=== PATIENT | male | born 1950 | race Caucasian/White ===

== ENCOUNTER 2021-11-21 22:10 | Emergency (ER) | payer OTHER ==
[2021-11-22 00:27] LABS: BASOPHIL 0.3 % (0-2); EOSINOPHIL 2.2 % (0-7); HCT 44.1 % (42.0-52.0); HGB 15.3 g/dl (13.2-18.0); LYMPHOCYTE 9.4 % (15-48); MCH 31.4 pg (25.0-31.0); MCHC 34.7 g/dL (32.0-36.0); MCV 90.6 fL (78.0-100.0); MONOCYTE 6.6 % (0-12); MPV 9.7 fL (6.0-9.5); NEUTROPHIL 80.8 % (41-80); NRBC 0; PLT 207 K/uL (150-400); RBC 4.87 M/uL (4.70-6.00); RDW 13.2 % (11.5-14.0); WBC 11.7 K/uL (4.0-10.5)
[2021-11-22 00:42] LABS: BUN/CREAT RATIO (CALC) 17.9 RATIO; CREATININE 0.84 mg/dL (0.67-1.17); POTASSIUM 3.9 mmol/L (3.5-5.1)
[2021-11-22] MEDS ORDERED: VIBRAMYCIN100 MG PO (07:09)
[2021-11-22] MEDS ORDERED: PERCOCET 5-3251 EACH PO (07:09)
[2021-11-22] MEDS ORDERED: ONDANSETRON ODT4 MG PO (07:40)
== END 2021-11-22 07:38 | disposition home or self-care (01) ==
LOC: FER 22:10
PROVIDERS: Internal Medicine
DX: S01.01XA Laceration without foreign body of scalp, initial encounter (principal); S09.90XA Unspecified injury of head, initial encounter; M79.674 Pain in right toe(s); M54.2 Cervicalgia; I11.0 Hypertensive heart disease with heart failure; I50.9 Heart failure, unspecified; W10.9XXA Fall (on) (from) unspecified stairs and steps, initial encounter; Y93.89 Activity, other specified; Y92.009 Unspecified place in unspecified non-institutional (private) residence as the place of occurrence of the external cause
CPT/HCPCS: 36415; 70450; 72125; 73630; 80048; 85025

== ENCOUNTER 2022-06-16 10:35 | Emergency (ER) | payer OTHER ==
[~2022-06-16 10:35] MED LIST: ONDANSETRON ODT4 MG PO; PERCOCET 5-3251 EACH PO; VIBRAMYCIN100 MG PO
[2022-06-16 11:48] LABS: BASOPHIL 0.4 % (0-2); EOSINOPHIL 3.6 % (0-7); HCT 44.8 % (42.0-52.0); HGB 15.3 g/dl (13.2-18.0); LYMPHOCYTE 18.7 % (15-48); MCH 31.6 pg (25.0-31.0); MCHC 34.2 g/dL (32.0-36.0); MCV 92.6 fL (78.0-100.0); MONOCYTE 6.5 % (0-12); MPV 10.2 fL (6.0-9.5); NEUTROPHIL 70.3 % (41-80); NRBC 0; PLT 201 K/uL (150-400); RBC 4.84 M/uL (4.70-6.00); RDW 13.7 % (11.5-14.0)
[2022-06-16 12:03] LABS: ALBUMIN 3.6 g/dL (3.4-5.0); BILIRUBIN - TOTAL 0.4 mg/dL (0.2-1.0); BUN/CREAT RATIO (CALC) 17.3 RATIO; CREATININE 0.81 mg/dL (0.67-1.17); GLOBULIN (CALCULATION) 3.2 g/dL; POTASSIUM 4.1 mmol/L (3.5-5.1); TOTAL PROTEIN 6.8 g/dL (6.4-8.2)
[2022-06-16 12:21] LABS: CORONAVIRUS 2019 SARS-COV-2 NEGATIVE (NEGATIVE); INFLUENZA A NAA NEGATIVE (NEGATIVE)
[2022-06-16] MEDS ORDERED: ANTIVERT25 MG PO (13:49)
[2022-06-16] MEDS ORDERED: ONDANSETRON ODT4 MG PO (13:49)
== END 2022-06-16 14:14 | disposition home or self-care (01) ==
LOC: FER 10:35
PROVIDERS: Internal Medicine
DX: R42 Dizziness and giddiness (principal); R11.0 Nausea; I10 Essential (primary) hypertension; Z20.822 Contact with and (suspected) exposure to COVID-19
CPT/HCPCS: 36415; 70450; 80053; 84484; 85025; 93005; Q0162; U0002